=== PATIENT | male | born 1995 ===

== ENCOUNTER 2022-01-02 02:58 | Inpatient (IN) | payer SELFPAY ==
[2022-01-02] MEDS ORDERED: HYDROmorphone 1 MG/1 ML INJ IV ONE ×4 (04:32→10:08)
[2022-01-02 05:45] LABS: Hematocrit 22.2 % (35.5-45.6); Hemoglobin 7.5 gm/dl (11.8-15.2); Mean Corpuscular HGB Conc 34 % (32-34); Mean Corpuscular Volume 71 fl (84-94); Platelet Count 638 K/mm3 (140-440); Red Blood Count 3.14 M/mm3 (3.65-5.03)
[2022-01-02 05:59] LABS: Red Cell Distribution Width 25.9 % (13.2-15.2)
[2022-01-02 06:06] LABS: Blood Urea Nitrogen 8 mg/dL (9-20); Calcium 9.3 mg/dL (8.4-10.2); Hemolysis Index 9
[2022-01-02 06:10] LABS: BUN/Creatinine Ratio 11
[2022-01-02 06:47] LABS: Anisocytosis 1+; Band Neutrophils # (Manual) 0.2 K/mm3; Basophils % (Manual) 0 % (0.0-1.8); Total Cells Counted 100
[2022-01-02 06:48] LABS: Hypochromasia 1+; Platelet Estimate Consistent w Auto
[2022-01-02] MEDS ORDERED: KETOROLAC 30 MG/1 ML INJ IV ONE (07:01)
[2022-01-02] MEDS ORDERED: diphenhydrAMINE 50 MG/ML VIAL IV ONE (07:01)
[2022-01-02] MEDS ORDERED: ONDANSETRON 4 MG/2 ML INJ IV ONE (07:01)
--- NOTE | 2022-01-02 07:10 | Emergency Department Report ---
HPI - General Chief Complaint: Sickle Cell Crisis Time Seen by Provider: 01/02/22 06:57 - HPI HPI: Room 4 The patient is a 26-year-old male present with a chief complaint of sickle cell pain crisis. Patient has a history of sickle cell disease and states yesterday he developed pain in his chest back and bilateral hips consistent with his pain crises. Patient denies shortness of breath or cough. Patient denies history of fever. Patient has nausea but denies vomiting. Patient currently gives his pain a score of 10/10. Patient states he is currently visiting from [place] ED Past Medical Hx - Past Medical History Previous Medical History?: Yes Hx Sickle Cell Disease: Yes Additional medical history: Avascular necrosis of both hips. - Surgical History Past Surgical History?: No - Family History Family history: no significant - Social History Smoking Status: Never Smoker Substance Use Type: None (Denies illicit drug use) ED Review of Systems ROS: Stated complaint: BODY ACHES Other details as noted in HPI Constitutional: denies: fever Eyes: denies: eye pain ENT: denies: throat pain Respiratory: denies: cough, shortness of breath Cardiovascular: chest pain Endocrine: no symptoms reported Gastrointestinal: nausea. denies: vomiting Genitourinary: denies: dysuria Musculoskeletal: arthralgia Neurological: denies: headache Hematological/Lymphatic: other (Sickle cell pain crisis) Physical Exam - Physical Exam Vital Signs: Vital Signs 01/02/22 01/02/22 01/02/22 02:58 04:39 05:57 Temperature 98 F Pulse Rate 86 60 Respiratory 18 16 Rate Blood Pressure 128/78 Blood Pressure 101/47 [Right] O2 Sat by Pulse 100 96 99 Oximetry Physical Exam: GENERAL: The patient is well-developed well-nourished male lying on stretcher appearing to be in moderate discomfort. [] HEENT: Normocephalic. Atraumatic. Extraocular motions are intact. Patient has moist mucous membranes. NECK: Supple. Trachea midline CHEST/LUNGS: Clear to auscultation. There is no respiratory distress noted. HEART/CARDIOVASCULAR: Regular. There is no tachycardia. There is no gallop rub or murmur. ABDOMEN: Abdomen is soft, nontender. Patient has normal bowel sounds. There is no abdominal distention. SKIN: There is no rash. There is no edema. There is no diaphoresis. NEURO: The patient is awake, alert, and oriented. The patient is cooperative. The patient has no focal neurologic deficits. The patient has normal speech. GCS 15 MUSCULOSKELETAL: There is no evidence of acute injury. ED Course Vital Signs 01/02/22 01/02/22 01/02/22 02:58 04:39 05:57 Temperature 98 F Pulse Rate 86 60 Respiratory 18 16 Rate Blood Pressure 128/78 Blood Pressure 101/47 [Right] O2 Sat by Pulse 100 96 99 Oximetry ED Medical Decision Making - Lab Data Result diagrams: 01/02/22 05:28 01/02/22 05:28 Laboratory Tests 01/02/22 01/02/22 01/02/22 05:28 05:28 Unknown WBC 15.0 H RBC 3.14 L Hgb 7.5 L Hct 22.2 L MCV 71 L MCH 24 L MCHC 34 RDW 25.9 H Plt Count 638 H Lymph # (Auto) Storage Facility Housekeeper Add Manual Diff Complete Total Counted 100 Seg Neuts % (Manual) 55.0 Band Neutrophils % 1.0 Lymphocytes % (Manual) 33.0 Reactive Lymphs % (Man) 0 Monocytes % (Manual) 9.0 H Eosinophils % (Manual) 2.0 Basophils % (Manual) 0 Metamyelocytes % 0 Myelocytes % 0 Promyelocytes % 0 Blast Cells % 0 Nucleated RBC % Not Reportable Seg Neutrophils # Man 8.3 H Band Neutrophils # 0.2 Lymphocytes # (Manual) 5.0 Abs React Lymphs (Man) 0.0 Monocytes # (Manual) 1.4 H Eosinophils # (Manual) 0.3 Basophils # (Manual) 0.0 Metamyelocytes # 0.0 Myelocytes # 0.0 Promyelocytes # 0.0 Blast Cells # 0.0 WBC Morphology Not Reportable Hypersegmented Neuts Not Reportable Hyposegmented Neuts Not Reportable Hypogranular Neuts Not Reportable Smudge Cells Not Reportable Toxic Granulation Not Reportable Toxic Vacuolation Not Reportable Dohle Bodies Not Reportable Pelger-Huet Anomaly Not Reportable Janusz Rods Not Reportable Platelet Estimate Consistent w auto Clumped Platelets Not Reportable Plt Clumps, EDTA Not Reportable Large Platelets Not Reportable Giant Platelets Not Reportable Platelet Satelliting Not Reportable Plt Morphology Comment Not Reportable RBC Morphology Not Reportable Dimorphic RBCs Not Reportable Polychromasia Not Reportable Hypochromasia 1+ Poikilocytosis Not Reportable Anisocytosis 1+ Microcytosis Not Reportable Macrocytosis Not Reportable Spherocytes Not Reportable Pappenheimer Bodies Not Reportable Sickle Cells Not Reportable Target Cells Not Reportable Tear Drop Cells Not Reportable Ovalocytes Not Reportable Helmet Cells Not Reportable [place] Bodies Not Reportable [place] Rings Not Reportable [place] Cells Not Reportable Bite Cells Not Reportable Crenated Cell Not Reportable Elliptocytes Not Reportable Acanthocytes (Spur) Not Reportable Rouleaux Not Reportable Hemoglobin C Crystals Not Reportable Schistocytes Not Reportable Malaria parasites Not Reportable Percent Retic 7.62 H Nico Bodies Not Reportable Hem Pathologist Commnt No Sodium 143 Potassium 3.7 Chloride 110.1 H Carbon Dioxide 22 Anion Gap 15 BUN 8 L Creatinine 0.7 L Estimated GFR > 60 BUN/Creatinine Ratio 11 Glucose 109 H Calcium 9.3 Troponin T < 0.010 - EKG Data -: EKG Interpreted by Me EKG shows normal: sinus rhythm Rate: normal - EKG Data When compared to previous EKG there are: previous EKG unavailable Interpretation: normal EKG - Radiology Data Radiology results: report reviewed (Chest x-ray, VQ scan), image reviewed (Chest x-ray, VQ scan) interpreted by me: Chest x-ray-no definite focal infiltrates, no pneumothorax VQ scan (read by radiologist)-low probability [facility] [address] [place] [address] XRay Report Signed Patient: EROS PRIDE MR#: [id number] 15 : 1995 Acct:[id number] Age/Sex: 26 / M ADM Date: 01/02/22 Loc: ED Attending Dr: Ordering Physician: JESSICA JONES MD Date of Service: 01/02/22 Procedure(s): XR chest 1V ap Accession Number(s): [id number] cc: JESSICA JONES MD Fluoro Time In Minutes: XR chest 1V ap INDICATION / CLINICAL INFORMATION: chest pain. COMPARISON: 12/31/2021 FINDINGS: SUPPORT DEVICES: None. HEART /PULMONARY VASCULATURE: Heart remains mildly enlarged. No significant pulmonary vasculature congestion. LUNGS / PLEURA: Mild diffuse increased interstitial prominence. No focal a irspace consolidation. No sizable pleural effusion or pneumothorax. IMPRESSION: Mild diffuse increased interstitial prominence, most likely representing pulmonary edema. Signer Name: Kike Hernandez MD Signed: 01/02/2022 7:26 AM Workstation Name: [id number] Transcribed By: BOOGIE Dictated By: KIKE HERNANDEZ MD Electronically Authenticated By: KIKE HERNANDEZ MD Signed Date/Time: 01/02/22725 DD/ 3 TD/TT: - Differential Diagnosis Sickle cell pain crisis, acute chest syndrome, Critical care attestation.: If time is entered above; I have spent that time in minutes in the direct care of this critically ill patient, excluding procedure time. ED Disposition Clinical Impression: Sickle cell pain crisis Disposition: ADMITTED INPATIENT Is pt being admited?: Yes Does the pt Need Aspirin: No Condition: Fair Time of Disposition: 11:00 (Care transferred to hospitalist (Dr. Hager))
--- NOTE | 2022-01-02 07:30 | XRay Report ---
XR chest 1V ap INDICATION / CLINICAL INFORMATION: chest pain. COMPARISON: 12/31/2021 FINDINGS: SUPPORT DEVICES: None. HEART /PULMONARY VASCULATURE: Heart remains mildly enlarged. No significant pulmonary vasculature con gestion. LUNGS / PLEURA: Mild diffuse increased interstitial prominence. No focal airspace consolidation. No s izable pleural effusion or pneumothorax. IMPRESSION: Mild diffuse increased interstitial prominence, most likely representing pulmonary edema. Signer Name: Dale Hernandez MD Signed: 01/02/2022 7:26 AM Workstation Name: [id number]
[2022-01-02] MEDS ORDERED: D5W/0.2% NACL 1,000 ML IV SCH (08:00)
--- NOTE | 2022-01-02 09:50 | Nuclear Medicine Report ---
NUCLEAR MEDICINE PERFUSION LUNG SCAN INDICATION / CLINICAL INFORMATION: Chest pain, history of sickle cell disease. TECHNIQUE: 5 mCi of Tc-99m MAA were given by IV. COMPARISON: Chest radiograph dated . FINDINGS: PERFUSION: No significant perfusion defects. ADDITIONAL FINDINGS: None. IMPRESSION: 1. Low probability for pulmonary embolism. Signer Name: Cathy Tiwari MD Signed: 01/02/2022 9:45 AM Workstation Name: [id number]
[2022-01-02] MEDS ORDERED: MORPHINE 2 MG/1 ML INJ IV PRN (14:07)
[2022-01-02] MEDS ORDERED: HYDROmorphone 0.5 MG/0.5 ML INJ IV PRN (14:07)
--- NOTE | 2022-01-02 14:13 | History and Physical Report ---
History of Present Illness Date of examination: 01/02/22 Date of admission: 01/02/2022 Chief complaint: Severe pain although worse since yesterday history of sickle cell crisis History of present illness: 26-year-old -[place] male with history of sickle cell disease and avascular necrosis of both hips presents with pain all over especially retrosternal and both hips. No cough or fever. No shortness of breath. Pain is about 10 on a scale of 1-10. Patient lives in [place] and is visiting [place]. No fever or chills. No exposure to COVID virus patient denies COVID vaccination. - Past Medical History --Previous Medical History?: Yes --Sickle Cell Disease: Yes --Additional medical history: Avascular necrosis of both hips. - Surgical History --Past Surgical History?: No - Family History --Family history: no significant - Social History --Smoking Status: Never Smoker --Substance Use Type: None (Denies illicit drug use) Review of Systems ROS: Stated complaint: BODY ACHES Other details as noted in HPI Constitutional: denies: fever Eyes: denies: eye pain ENT: denies: throat pain Respiratory: denies: cough, shortness of breath Cardiovascular: chest pain Endocrine: no symptoms reported Gastrointestinal: nausea. denies: vomiting Genitourinary: denies: dysuria Musculoskeletal: arthralgia Neurological: denies: headache Hematological/Lymphatic: other (Sickle cell pain crisis) Medications and Allergies Allergies Allergy/AdvReac Type Severity Reaction Status Date / Time morphine Allergy Hives Verified 01/02/22 07:23 Home Medications Medication Instructions Recorded Confirmed Last Taken Type oxyCONTIN ER 01/02/22 Unknown History Active Meds: Active Medications Dextrose/Sodium Chloride (D5ns 0.2%) 1,000 mls @ 250 mls/hr IV DIRECT NIGEL Last Admin: 01/02/22 07:42 Dose: 250 mls/hr Exam - Constitutional Vitals: Temp Pulse Resp BP Pulse Ox 98.0 F 55 L 19 97/44 97 01/02/22 12:53 01/02/22 12:53 01/02/22 12:53 01/02/22 12:53 01/02/22 12:53 General appearance: Present: no acute distress, well-nourished - EENT Eyes: Present: PERRL ENT: hearing intact, clear oral mucosa - Neck Neck: Present: supple, normal ROM - Respiratory Respiratory effort: normal Respiratory: bilateral: CTA - Cardiovascular Heart rate: 78 Rhythm: regular Heart Sounds: Present: S1 & S2. Absent: rub, click - Extremities Extremities: pulses symmetrical, No edema Peripheral Pulses: within normal limits - Abdominal General gastrointestinal: Present: soft, non-tender, non-distended, normal bowel sounds Male genitourinary: Present: normal - Integumentary Integumentary: Present: clear, warm, dry - Musculoskeletal Musculoskeletal: gait normal, strength equal bilaterally - Psychiatric Psychiatric: appropriate mood/affect, intact judgment & insight - Neurologic Neurologic: CNII-XII intact, moves all extremities HEART Score - HEART Score Troponin: Troponin T < 0.010 ng/mL (0.00-0.029) 01/02/22 Unknown Results - Labs CBC & Chem 7: 01/03/22 05:08 01/03/22 05:08 Labs: Laboratory Last Values WBC 15.0 K/mm3 (4.5-11.0) H 01/02/22 05:28 RBC 3.14 M/mm3 (3.65-5.03) L 01/02/22 05:28 Hgb 7.5 gm/dl (11.8-15.2) L 01/02/22 05:28 Hct 22.2 % (35.5-45.6) L 01/02/22 05:28 MCV 71 fl (84-94) L 01/02/22 05:28 MCH 24 pg (28-32) L 01/02/22 05:28 MCHC 34 % (32-34) 01/02/22 05:28 RDW 25.9 % (13.2-15.2) H 01/02/22 05:28 Plt Count 638 K/mm3 (140-440) H 01/02/22 05:28 Lymph # (Auto) Manager Investment 01/02/22 05:28 Add Manual Diff Complete 01/02/22 05:28 Total Counted 100 01/02/22 05:28 Seg Neuts % (Manual) 55.0 % (40.0-70.0) 01/02/22 05:28 Band Neutrophils % 1.0 % 01/02/22 05:28 Lymphocytes % (Manual) 33.0 % (13.4-35.0) 01/02/22 05:28 Reactive Lymphs % (Man) 0 % 01/02/22 05:28 Monocytes % (Manual) 9.0 % (0.0-7.3) H 01/02/22 05:28 Eosinophils % (Manual) 2.0 % (0.0-4.3) 01/02/22 05:28 Basophils % (Manual) 0 % (0.0-1.8) 01/02/22 05:28 Metamyelocytes % 0 % 01/02/22 05:28 Myelocytes % 0 % 01/02/22 05:28 Promyelocytes % 0 % 01/02/22 05:28 Blast Cells % 0 % 01/02/22 05:28 Nucleated RBC % Not Reportable 01/02/22 05:28 Seg Neutrophils # Man 8.3 K/mm3 (1.8-7.7) H 01/02/22 05:28 Band Neutrophils # 0.2 K/mm3 01/02/22 05:28 Lymphocytes # (Manual) 5.0 K/mm3 (1.2-5.4) 01/02/22 05:28 Abs React Lymphs (Man) 0.0 K/mm3 01/02/22 05:28 Monocytes # (Manual) 1.4 K/mm3 (0.0-0.8) H 01/02/22 05:28 Eosinophils # (Manual) 0.3 K/mm3 (0.0-0.4) 01/02/22 05:28 Basophils # (Manual) 0.0 K/mm3 (0.0-0.1) 01/02/22 05:28 Metamyelocytes # 0.0 K/mm3 01/02/22 05:28 Myelocytes # 0.0 K/mm3 01/02/22 05:28 Promyelocytes # 0.0 K/mm3 01/02/22 05:28 Blast Cells # 0.0 K/mm3 01/02/22 05:28 WBC Morphology Not Reportable 01/02/22 05:28 Hypersegmented Neuts Not Reportable 01/02/22 05:28 Hyposegmented Neuts Not Reportable 01/02/22 05:28 Hypogranular Neuts Not Reportable 01/02/22 05:28 Smudge Cells Not Reportable 01/02/22 05:28 Toxic Granulation Not Reportable 01/02/22 05:28 Toxic Vacuolation Not Reportable 01/02/22 05:28 Dohle Bodies Not Reportable 01/02/22 05:28 Pelger-Huet Anomaly Not Reportable 01/02/22 05:28 Janusz Rods Not Reportable 01/02/22 05:28 Platelet Estimate Consistent w auto 01/02/22 05:28 Clumped Platelets Not Reportable 01/02/22 05:28 Plt Clumps, EDTA Not Reportable 01/02/22 05:28 Large Platelets Not Reportable 01/02/22 05:28 Giant Platelets Not Reportable 01/02/22 05:28 Platelet Satelliting Not Reportable 01/02/22 05:28 Plt Morphology Comment Not Reportable 01/02/22 05:28 RBC Morphology Not Reportable 01/02/22 05:28 Dimorphic RBCs Not Reportable 01/02/22 05:28 Polychromasia Not Reportable 01/02/22 05:28 Hypochromasia 1+ 01/02/22 05:28 Poikilocytosis Not Reportable 01/02/22 05:28 Anisocytosis 1+ 01/02/22 05:28 Microcytosis Not Reportable 01/02/22 05:28 Macrocytosis Not Reportable 01/02/22 05:28 Spherocytes Not Reportable 01/02/22 05:28 Pappenheimer Bodies Not Reportable 01/02/22 05:28 Sickle Cells Not Reportable 01/02/22 05:28 Target Cells Not Reportable 01/02/22 05:28 Tear Drop Cells Not Reportable 01/02/22 05:28 Ovalocytes Not Reportable 01/02/22 05:28 Helmet Cells Not Reportable 01/02/22 05:28 Low-[place] Bodies Not Reportable 01/02/22 05:28 [place] Rings Not Reportable 01/02/22 05:28 [place] Cells Not Reportable 01/02/22 05:28 Bite Cells Not Reportable 01/02/22 05:28 Crenated Cell Not Reportable 01/02/22 05:28 Elliptocytes Not Reportable 01/02/22 05:28 Acanthocytes (Spur) Not Reportable 01/02/22 05:28 Rouleaux Not Reportable 01/02/22 05:28 Hemoglobin C Crystals Not Reportable 01/02/22 05:28 Schistocytes Not Reportable 01/02/22 05:28 Malaria parasites Not Reportable 01/02/22 05:28 Percent Retic 7.62 % (0.78-2.58) H 01/02/22 05:28 Nico Bodies Not Reportable 01/02/22 05:28 Hem Pathologist Commnt No 01/02/22 05:28 Sodium 143 mmol/L (137-145) 01/02/22 05:28 Potassium 3.7 mmol/L (3.6-5.0) 01/02/22 05:28 Chloride 110.1 mmol/L (98-107) H 01/02/22 05:28 Carbon Dioxide 22 mmol/L (22-30) 01/02/22 05:28 Anion Gap 15 mmol/L 01/02/22 05:28 BUN 8 mg/dL (9-20) L 01/02/22 05:28 Creatinine 0.7 mg/dL (0.8-1.3) L 01/02/22 05:28 Estimated GFR > 60 ml/min 01/02/22 05:28 BUN/Creatinine Ratio 11 % 01/02/22 05:28 Glucose 109 mg/dL (75-100) H 01/02/22 05:28 Calcium 9.3 mg/dL (8.4-10.2) 01/02/22 05:28 Troponin T < 0.010 ng/mL (0.00-0.029) 01/02/22 Unknown Short CBC 01/03/22 Range/Units 05:08 WBC 15.0 H (4.5-11.0) K/mm3 Hgb 7.9 L (11.8-15.2) gm/dl Hct 24.4 L (35.5-45.6) % Plt Count 626 H (140-440) K/mm3 BMP 01/03/22 05:08 Sodium 140 Potassium 4.0 Chloride 108.4 H Carbon Dioxide 24 BUN 5 L Creatinine 0.6 L Glucose 101 H Calcium 8.6 Cardiac Enzymes 01/02/22 Range/Units Unknown Troponin T < 0.010 (0.00-0.029) ng/mL Liver Function 01/03/22 Range/Units 05:08 Total Bilirubin 1.70 H (0.1-1.2) mg/dL AST 25 (5-40) units/L ALT 8 (7-56) units/L Alkaline Phosphatase 83 (35-129) units/L Albumin 3.7 L (3.9-5) g/dL - Imaging and Cardiology Imaging and Cardiology: Chest x-ray Mild diffuse increased interstitial prominence, most likely representing pulmonary edema Assessment and Plan Advance Directives: Yes (Full code) VTE prophylaxis?: Chemical Plan of care discussed with patient/family: Yes - Patient Problems (1) Sickle cell pain crisis Current Visit: Yes Status: Acute Plan to address problem: IV fluids and pain management Monitor reticulocyte count (2) Hemolytic anemia Current Visit: Yes Status: Acute Qualifiers: Qualified Code(s): 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 Plan to address problem: Due to sickle cell disease Transfuse as necessary (3) Pain management Current Visit: Yes Status: Acute Plan to address problem: IV Dilaudid 2 mg every 3 as needed IV Toradol as necessary (4) Leukocytosis Current Visit: Yes Status: Acute Plan to address problem: Secondary to demargination No IV antibiotics (5) DVT prophylaxis Current Visit: Yes Status: Acute Plan to address problem: On anticoagulation GI prophylaxis (6) Advance care planning Current Visit: Yes Status: Acute Plan to address problem: Disease education conducted, care plan discussed, diagnosis discussed, prognosis discussed. Patient acknowledges understanding and agrees with care plan. +30 minutes.
[2022-01-02] MEDS ORDERED: ONDANSETRON 4 MG/2 ML INJ ONE (14:19)
[2022-01-02] MEDS ORDERED: ACETAMINOPHEN 325 MG TAB PO PRN (14:30)
[2022-01-02] MEDS: HEPARIN 5,000 UNIT/1 ML VIAL SUB-Q SCH ×2 (14:31→21:24)
[2022-01-02] MEDS: HYDROmorphone 2 MG/1 ML INJ IV PRN ×3 (14:33→21:30)
[2022-01-02] MEDS ORDERED: oxyCODONE /ACETAMINOPHEN 5-325MG TAB PO PRN (15:00)
[2022-01-02] MEDS ORDERED: ONDANSETRON 4 MG/2 ML INJ IV PRN (15:00)
[2022-01-02] MEDS: D5W/0.9% NACL 1,000 ML IV SCH (16:21)
[2022-01-02] MEDS ORDERED: FAMOTIDINE 20 MG/2 ML INJ IV SCH (22:00)
[2022-01-03] MEDS: D5W/0.9% NACL 1,000 ML IV SCH ×3 (00:26→17:05)
[2022-01-03] MEDS: HYDROmorphone 2 MG/1 ML INJ IV PRN ×8 (00:35→23:21)
[2022-01-03 06:22] LABS: Hematocrit 24.4 % (35.5-45.6); Hemoglobin 7.9 gm/dl (11.8-15.2); Mean Corpuscular HGB Conc 33 % (32-34); Mean Corpuscular Volume 70 fl (84-94); Platelet Count 626 K/mm3 (140-440); Red Blood Count 3.47 M/mm3 (3.65-5.03)
[2022-01-03 06:29] LABS: Red Cell Distribution Width 25.8 % (13.2-15.2)
[2022-01-03 06:40] LABS: Alanine Aminotransferase 8 units/L (7-56); Albumin 3.7 g/dL (3.9-5); Blood Urea Nitrogen 5 mg/dL (9-20); Calcium 8.6 mg/dL (8.4-10.2); Hemolysis Index 11
[2022-01-03 06:47] LABS: BUN/Creatinine Ratio 8
[2022-01-03 07:11] LABS: Anisocytosis 1+; Basophils % (Manual) 0 % (0.0-1.8); Total Cells Counted 100
[2022-01-03 07:17] LABS: Hypochromasia 1+
[2022-01-03 07:18] LABS: Target Cells 1+
[2022-01-03 07:20] LABS: Platelet Estimate Consistent w Auto
[2022-01-03] MEDS: HEPARIN 5,000 UNIT/1 ML VIAL SUB-Q SCH ×2 (09:18→21:22)
[2022-01-03] MEDS: FAMOTIDINE 20 MG TAB PO SCH ×2 (09:19→22:12)
--- NOTE | 2022-01-03 12:19 | Progress Note ---
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 Plan to address problem: Due to sickle cell disease Transfuse as necessary (3) Pain management Current Visit: Yes Status: Acute Plan to address problem: IV Dilaudid 2 mg every 3 as needed IV Toradol as necessary (4) Leukocytosis Current Visit: Yes Status: Acute Plan to address problem: Secondary to demargination No IV antibiotics (5) DVT prophylaxis Current Visit: Yes Status: Acute Plan to address problem: On anticoagulation GI prophylaxis (6) Advance care planning Current Visit: Yes Status: Acute Plan to address problem: Disease education conducted, care plan discussed, diagnosis discussed, prognosis discussed. Patient acknowledges understanding and agrees with care plan. +30 minutes. Subjective Date of service: 01/03/22 Principal diagnosis: Sickle cell crisis Interval history: Patient admitted for sickle cell crisis Patient continues to have severe pain all over Patient on Dilaudid every 3 hours Critical care time Objective - Constitutional Vitals: Vital Signs - 12hr 01/03/22 01/03/22 01/03/22 00:32 00:35 01:05 Temperature Pulse Rate 55 L Respiratory 18 18 Rate Blood Pressure Blood Pressure 112/54 [Right] O2 Sat by Pulse Oximetry 01/03/22 01/03/22 01/03/22 03:53 04:23 05:00 Temperature 97.7 F Pulse Rate Respiratory 20 18 18 Rate Blood Pressure 97/28 Blood Pressure [Right] O2 Sat by Pulse Oximetry 01/03/22 10:00 Temperature Pulse Rate Respiratory Rate Blood Pressure Blood Pressure [Right] O2 Sat by Pulse 98 Oximetry General appearance: Present: mild distress, well-nourished - EENT Eyes: PERRL, EOM intact ENT: hearing intact, clear oral mucosa Ears: bilateral: normal - Neck Neck: supple, normal ROM - Respiratory Respiratory effort: normal Respiratory: bilateral: CTA - Breasts Breasts: normal - Cardiovascular Heart rate: 78 Rhythm: regular Heart Sounds: Present: S1 & S2. Absent: gallop, rub Extremities: pulses intact, No edema, normal color, Full ROM - Gastrointestinal General gastrointestinal: Present: soft, non-tender, non-distended, normal bowel sounds - Genitourinary Male genitourinary: normal - Integumentary Integumentary: clear, warm, dry - Musculoskeletal Musculoskeletal: 1, strength equal bilaterally - Neurologic Neurologic: moves all extremities - Psychiatric Psychiatric: memory intact, appropriate mood/affect, intact judgment & insight - Labs CBC & Chem 7: 01/03/22 05:08 01/03/22 05:08 Labs: Abnormal lab results 01/02/22 01/03/22 01/03/22 Range/Units 05:28 05:08 05:08 WBC 15.0 H (4.5-11.0) K/mm3 RBC 3.47 L (3.65-5.03) M/mm3 Hgb 7.9 L (11.8-15.2) gm/dl Hct 24.4 L (35.5-45.6) % MCV 70 L (84-94) fl MCH 23 L (28-32) pg RDW 25.8 H (13.2-15.2) % Plt Count 626 H (140-440) K/mm3 Seg Neuts % (Manual) 35.0 L (40.0-70.0) % Lymphocytes % (Manual) 47.0 H (13.4-35.0) % Eosinophils % (Manual) 17.0 H (0.0-4.3) % Nucleated RBC % 1.0 H (0.0-0.9) % Lymphocytes # (Manual) 7.1 H (1.2-5.4) K/mm3 Eosinophils # (Manual) 2.6 H (0.0-0.4) K/mm3 Percent Retic 7.48 H 7.69 H (0.78-2.58) % Chloride 108.4 H (98-107) mmol/L BUN 5 L (9-20) mg/dL Creatinine 0.6 L (0.8-1.3) mg/dL Glucose 101 H (75-100) mg/dL Total Bilirubin 1.70 H (0.1-1.2) mg/dL Albumin 3.7 L (3.9-5) g/dL HEART Score - HEART Score Troponin: Troponin T < 0.010 ng/mL (0.00-0.029) 01/02/22 Unknown
--- NOTE | 2022-01-03 13:14 | Electrocardiograph Report ---
[facility] Test Date: 2022-01-02 Test Time: 03:48:32 Pat Name: EROS PRIDE Department: Room: A385 Gender: M Electric System Operator: MYRIAM : 1995 Requested By: JESSICA JONES Order Number: [id number] Reading MD: Giovanni Kennedy Measurements Intervals [place] Rate: 68 P: 54 ND: 167 QRS: 66 QRSD: 93 T: 59 QT: 375 QTc: 399 Interpretive Statements Sinus rhyth, Early repolarization. No previous ECG available for comparison Electronically Signed On 01-03-2022 13:13:53 EDT by Giovanni Kennedy
[2022-01-04] MEDS: HYDROmorphone 2 MG/1 ML INJ IV PRN ×7 (02:21→21:45)
[2022-01-04] MEDS: FAMOTIDINE 20 MG TAB PO SCH ×2 (09:28→21:45)
[2022-01-04] MEDS: HEPARIN 5,000 UNIT/1 ML VIAL SUB-Q SCH ×2 (09:32→21:46)
[2022-01-04] MEDS: D5W/0.9% NACL 1,000 ML IV SCH ×2 (09:33→18:47)
--- NOTE | 2022-01-04 12:51 | Progress Note ---
Assessment and Plan Assessment and plan: 26-year-old -[place] male with history of sickle cell disease and avascular necrosis of both hips presents with pain all over especially retrosternal and both hips. The patient was admitted with diagnosis below: Sickle cell vaso-occlusive crisis Sickle cell anemia Leukocytosis 01/04/2022. Patient still complains of lower back pain and not quite back to his baseline. Patient will be continued on IV fluid hydration and IV pain meds. Anticipate discharge in a.m. History Interval history: No new issues overnight Hospitalist Physical - Constitutional Vitals: Temp Pulse Resp BP Pulse Ox 98.8 F 71 18 114/63 98 01/03/22 18:51 01/03/22 18:51 01/03/22 18:51 01/03/22 18:51 01/04/22 10:56 General appearance: Present: mild distress, well-nourished - EENT Eyes: Present: PERRL, EOM intact ENT: hearing intact, clear oral mucosa, dentition normal - Neck Neck: Present: supple, normal ROM - Respiratory Respiratory effort: normal Respiratory: bilateral: CTA - Cardiovascular Rhythm: regular Heart Sounds: Present: S1 & S2. Absent: gallop, rub - Extremities Extremities: no ischemia, No edema, Full ROM - Abdominal General gastrointestinal: soft, non-tender, non-distended, normal bowel sounds - Integumentary Integumentary: Present: clear, warm, dry - Neurologic Neurologic: CNII-XII intact, moves all extremities HEART Score - HEART Score Troponin: Troponin T < 0.010 ng/mL (0.00-0.029) 01/02/22 Unknown Results - Labs CBC & Chem 7: 01/03/22 05:08 01/03/22 05:08 Labs: Laboratory Last Values WBC 15.0 K/mm3 (4.5-11.0) H 01/03/22 05:08 RBC 3.47 M/mm3 (3.65-5.03) L 01/03/22 05:08 Hgb 7.9 gm/dl (11.8-15.2) L 01/03/22 05:08 Hct 24.4 % (35.5-45.6) L 01/03/22 05:08 MCV 70 fl (84-94) L 01/03/22 05:08 MCH 23 pg (28-32) L 01/03/22 05:08 MCHC 33 % (32-34) 01/03/22 05:08 RDW 25.8 % (13.2-15.2) H 01/03/22 05:08 Plt Count 626 K/mm3 (140-440) H 01/03/22 05:08 Lymph # (Auto) Agricultural Education Professor 01/03/22 05:08 Add Manual Diff Complete 01/03/22 05:08 Total Counted 100 01/03/22 05:08 Seg Neuts % (Manual) 35.0 % (40.0-70.0) L 01/03/22 05:08 Band Neutrophils % 0 % 01/03/22 05:08 Lymphocytes % (Manual) 47.0 % (13.4-35.0) H 01/03/22 05:08 Reactive Lymphs % (Man) 0 % 01/03/22 05:08 Monocytes % (Manual) 1.0 % (0.0-7.3) 01/03/22 05:08 Eosinophils % (Manual) 17.0 % (0.0-4.3) H 01/03/22 05:08 Basophils % (Manual) 0 % (0.0-1.8) 01/03/22 05:08 Metamyelocytes % 0 % 01/03/22 05:08 Myelocytes % 0 % 01/03/22 05:08 Promyelocytes % 0 % 01/03/22 05:08 Blast Cells % 0 % 01/03/22 05:08 Nucleated RBC % 1.0 % (0.0-0.9) H 01/03/22 05:08 Seg Neutrophils # Man 5.3 K/mm3 (1.8-7.7) 01/03/22 05:08 Band Neutrophils # 0.0 K/mm3 01/03/22 05:08 Lymphocytes # (Manual) 7.1 K/mm3 (1.2-5.4) H 01/03/22 05:08 Abs React Lymphs (Man) 0.0 K/mm3 01/03/22 05:08 Monocytes # (Manual) 0.2 K/mm3 (0.0-0.8) 01/03/22 05:08 Eosinophils # (Manual) 2.6 K/mm3 (0.0-0.4) H 01/03/22 05:08 Basophils # (Manual) 0.0 K/mm3 (0.0-0.1) 01/03/22 05:08 Metamyelocytes # 0.0 K/mm3 01/03/22 05:08 Myelocytes # 0.0 K/mm3 01/03/22 05:08 Promyelocytes # 0.0 K/mm3 01/03/22 05:08 Blast Cells # 0.0 K/mm3 01/03/22 05:08 WBC Morphology Not Reportable 01/03/22 05:08 Hypersegmented Neuts Not Reportable 01/03/22 05:08 Hyposegmented Neuts Not Reportable 01/03/22 05:08 Hypogranular Neuts Not Reportable 01/03/22 05:08 Smudge Cells Not Reportable 01/03/22 05:08 Toxic Granulation Not Reportable 01/03/22 05:08 Toxic Vacuolation Not Reportable 01/03/22 05:08 Dohle Bodies Not Reportable 01/03/22 05:08 Pelger-Huet Anomaly Not Reportable 01/03/22 05:08 Janusz Rods Not Reportable 01/03/22 05:08 Platelet Estimate Consistent w auto 01/03/22 05:08 Clumped Platelets Not Reportable 01/03/22 05:08 Plt Clumps, EDTA Not Reportable 01/03/22 05:08 Large Platelets Not Reportable 01/03/22 05:08 Giant Platelets Not Reportable 01/03/22 05:08 Platelet Satelliting Not Reportable 01/03/22 05:08 Plt Morphology Comment Not Reportable 01/03/22 05:08 RBC Morphology Not Reportable 01/03/22 05:08 Dimorphic RBCs Not Reportable 01/03/22 05:08 Polychromasia Not Reportable 01/03/22 05:08 Hypochromasia 1+ 01/03/22 05:08 Poikilocytosis Not Reportable 01/03/22 05:08 Anisocytosis 1+ 01/03/22 05:08 Microcytosis 1+ 01/03/22 05:08 Macrocytosis Not Reportable 01/03/22 05:08 Spherocytes Not Reportable 01/03/22 05:08 Pappenheimer Bodies Not Reportable 01/03/22 05:08 Sickle Cells Not Reportable 01/03/22 05:08 Target Cells 1+ 07/04/22 05:08 Tear Drop Cells Not Reportable 01/03/22 05:08 Ovalocytes Not Reportable 01/03/22 05:08 Helmet Cells Not Reportable 01/03/22 05:08 Low-[place] Bodies Not Reportable 01/03/22 05:08 [place] Rings Not Reportable 01/03/22 05:08 Chris Cells Not Reportable 01/03/22 05:08 Bite Cells Not Reportable 01/03/22 05:08 Crenated Cell Not Reportable 01/03/22 05:08 Elliptocytes 1+ 01/03/22 05:08 Acanthocytes (Spur) Not Reportable 01/03/22 05:08 Rouleaux Not Reportable 01/03/22 05:08 Hemoglobin C Crystals Not Reportable 01/03/22 05:08 Schistocytes Not Reportable 01/03/22 05:08 Malaria parasites Not Reportable 01/03/22 05:08 Percent Retic 7.69 % (0.78-2.58) H 01/03/22 05:08 Nico Bodies Not Reportable 01/03/22 05:08 Hem Pathologist Commnt No 01/03/22 05:08 Sodium 140 mmol/L (137-145) 01/03/22 05:08 Potassium 4.0 mmol/L (3.6-5.0) 01/03/22 05:08 Chloride 108.4 mmol/L (98-107) H 01/03/22 05:08 Carbon Dioxide 24 mmol/L (22-30) 01/03/22 05:08 Anion Gap 12 mmol/L 01/03/22 05:08 BUN 5 mg/dL (9-20) L 01/03/22 05:08 Creatinine 0.6 mg/dL (0.8-1.3) L 01/03/22 05:08 Estimated GFR > 60 ml/min 01/03/22 05:08 BUN/Creatinine Ratio 8 % 01/03/22 05:08 Glucose 101 mg/dL (75-100) H 01/03/22 05:08 Calcium 8.6 mg/dL (8.4-10.2) 01/03/22 05:08 Total Bilirubin 1.70 mg/dL (0.1-1.2) H 01/03/22 05:08 AST 25 units/L (5-40) 01/03/22 05:08 ALT 8 units/L (7-56) 01/03/22 05:08 Alkaline Phosphatase 83 units/L (35-129) 01/03/22 05:08 Troponin T < 0.010 ng/mL (0.00-0.029) 01/02/22 Unknown Total Protein 6.4 g/dL (6.3-8.2) 01/03/22 05:08 Albumin 3.7 g/dL (3.9-5) L 01/03/22 05:08 Albumin/Globulin Ratio 1.4 % 01/03/22 05:08 Dale/IV: Voiding Method Toilet Active Medications - Current Medications Current Medications: Generic Name Dose Route Start Last Admin Trade Name Freq PRN Reason Stop Dose Admin Acetaminophen 650 mg 01/02/22 14:30 Acetaminophen 325 Mg Tab PO Q4H PRN Pain MILD(1-3)/Fever >100.5/BRODERICK Famotidine 20 mg 01/03/22 10:00 01/04/22 09:28 Famotidine 20 Mg Tab PO 20 mg BID NIGEL Administration Heparin Sodium (Porcine) 5,000 unit 01/02/22 15:00 01/04/22 09:32 Heparin 5,000 Unit/1 Ml Vial SUB-Q Not Given Q12HR NIGEL Hydromorphone HCl 2 mg 01/02/22 15:00 01/04/22 12:33 Hydromorphone 2 Mg/1 Ml Inj IV 2 mg Q3H PRN Administration Pain , Severe (7-10) Dextrose/Sodium Chloride 1,000 mls @ 125 mls/hr 01/02/22 15:00 01/04/22 09:33 D5ns IV 125 mls/hr DIRECT NIGEL Administration Ondansetron HCl 4 mg 01/02/22 15:00 01/02/22 14:34 Ondansetron 4 Mg/2 Ml Inj IV 4 mg Q3H PRN Administration Nausea And Vomiting Oxycodone/Acetaminophen 1 tab 01/02/22 15:00 Oxycodone /Acetaminophen 5-325mg Tab PO Q6H PRN Pain, Moderate (4-6) Sodium Chloride 10 ml 01/02/22 22:00 01/04/22 09:33 Sodium Chloride 0.9% 10 Ml Flush Syringe IV 10 ml BID NIGEL Administration Sodium Chloride 10 ml 01/02/22 15:00 Sodium Chloride 0.9% 10 Ml Flush Syringe IV PRN PRN LINE FLUSH
[2022-01-04 20:02] VITALS: BP 104/53
[2022-01-05] MEDS: HYDROmorphone 2 MG/1 ML INJ IV PRN ×3 (00:48→07:28)
[2022-01-05] MEDS: D5W/0.9% NACL 1,000 ML IV SCH (05:29)
[2022-01-05] MEDS: HEPARIN 5,000 UNIT/1 ML VIAL SUB-Q SCH (09:14)
[2022-01-05] MEDS: FAMOTIDINE 20 MG TAB PO SCH (09:14)
--- NOTE | 2022-01-05 10:42 | Discharge Summary ---
Providers - Providers Date of Admission: 01/02/22 14:20 Date of discharge: 01/05/22 Attending physician: SAMSON CRUZ Primary care physician: JOSE BARNES Hospitalization Reason for admission: Sickle cell vaso-occlusive crisis Condition: Fair Hospital course: 26-year-old -[place] male with history of sickle cell disease and av ascular necrosis of both hips presented with pain all over especially retrosternal and both hips. The patient was admitted with diagnosis below: Sickle cell vaso-occlusive crisis Sickle cell anemia Leukocytosis Shortly after admission, on hospital day #2 patient still complained of lower back pain and not quite back to his baseline. Patient was continued on IV fluid hydration and IV pain meds. The patient has significant improvement with IV fluid hydration and supportive care. Patient is back to baseline and will be discharged home. Dedicated discharge time 32 minutes Disposition: 01 HOME / SELF CARE / HOMELESS Final Discharge Diagnosis (Prints w/discharge instructions): Sickle cell vaso- occlusive crisis. Sickle cell anemia. Leukocytosis Core Measure Documentation - Palliative Care Palliative Care/ Comfort Measures: Not Applicable - Core Measures Any of the following diagnoses?: none Exam - Constitutional Vitals: Temp Pulse Resp BP Pulse Ox 98.5 F 68 18 104/53 98 01/04/22 09:14 01/03/22 22:31 01/04/22 09:14 01/04/22 18:48 01/04/22 21:15 General appearance: Present: no acute distress, well-nourished - EENT Eyes: Present: PERRL ENT: hearing intact, clear oral mucosa - Neck Neck: Present: supple, normal ROM - Respiratory Respiratory effort: normal Respiratory: bilateral: CTA - Cardiovascular Heart Sounds: Present: S1 & S2. Absent: rub, click - Extremities Extremities: pulses symmetrical, No edema Peripheral Pulses: within normal limits - Abdominal General gastrointestinal: Present: soft, non-tender, non-distended, normal bowel sounds Male genitourinary: Present: normal - Integumentary Integumentary: Present: clear, warm, dry - Musculoskeletal Musculoskeletal: gait normal, strength equal bilaterally - Psychiatric Psychiatric: appropriate mood/affect, intact judgment & insight - Neurologic Neurologic: CNII-XII intact, moves all extremities Plan Activity: advance as tolerated Weight Bearing Status: Weight Bear as Tolerated Diet: regular Follow up with: JOSE BARNES MD [Primary Care Provider] - 3-5 Days Prescriptions: oxyCODONE /ACETAMINOPHEN [Percocet 5/325 mg] 1 tab PO Q6H PRN #8 tablet PRN Reason: Pain, Moderate (4-6)
== END 2022-01-05 13:35 | disposition home or self-care (01) | DRG 812 ==
LOC: ED 02:58 → 3A 14:20
PROVIDERS: ADMIT Internal Medicine; ATTEND Hospitalist
DX: D57.819 Other sickle-cell disorders with crisis, unspecified (principal); Z88.5 Allergy status to narcotic agent; D72.829 Elevated white blood cell count, unspecified
CPT/HCPCS: 36415; 71045; 78580; 80048; 80053; 84484; 85007; 85025; 85045; 93005; G0378; J3490; J7042; A9540; J1170; J1200; J1644; J1885; J2405